=== PATIENT | female | born 1980 | race American Indian/Alaskan Native ===

== ENCOUNTER 2023-12-18 20:28 | Emergency (ER) | payer SELFPAY ==
[2023-12-18 20:47] LABS: BASOPHILS ABSOLUTE AUTO 0.1 K/mm3 (0.0-0.2); BASOPHILS PERCENT AUTO 1.4 % (0.0-1.0); EOSINOPHILS ABSOLUTE AUTO 0.2 K/mm3 (0.0-0.4); EOSINOPHILS PERCENT AUTO 3.7 % (0.0-6.0); HEMATOCRIT 36.5 % (37.0-47.0); IMMATURE GRAN ABSOLUTE AUTO 0.02 K/mm3 (0.00-0.05); IMMATURE GRAN PERCENT AUTO 0.4 % (0.0-0.4); LYMPHOCYTES ABSOLUTE AUTO 1.3 K/mm3 (1.0-4.8); LYMPHOCYTES PERCENT AUTO 22.9 % (24.0-44.0); MEAN CORPUSCULAR HEMOGLOBIN 23.1 pg (28.0-32.0); MEAN CORPUSCULAR HGB CONC 30.1 g/dl (32.0-36.0); MEAN CORPUSCULAR VOLUME 76.5 fl (83.0-99.0); MONOCYTES ABSOLUTE AUTO 0.6 K/mm3 (0.0-0.8); MONOCYTES PERCENT AUTO 9.8 % (0.0-8.0); NEUTROPHILS ABSOLUTE AUTO 3.5 K/mm3 (1.8-7.7); NEUTROPHILS PERCENT AUTO 61.8 % (41.0-71.0); PLATELET COUNT,PLT 398 K/mm3 (150-400); RED BLOOD CELL COUNT 4.77 M/mm3 (4.10-5.30); WHITE BLOOD CELL COUNT,WBC 5.63 K/mm3 (3.9-11.3)
[2023-12-18 20:49] LABS: APPEARANCE,URINE TURBID (Clear); BILIRUBIN,URINE 2+ (Negative); COLOR,URINE RED (Yellow); GLUCOSE,URINE NEGATIVE (Negative); KETONES,URINE 1+ (Negative); LEUKOCYTE ESTERASE,URINE 3+ (Negative); NITRITE,URINE POSITIVE (Negative); OCCULT BLOOD,URINE 3+ (Negative); PROTEIN,URINE 3+ (Negative)
[2023-12-18 21:02] LABS: BACTERIA,URINE MODERATE /hpf (FEW); MUCUS,URINE FEW /hpf (FEW); RBC,URINE TOO NUMEROUS TO CNT /hpf (0-5); WBC,URINE 50-75 /hpf (0-5)
[2023-12-18 21:32] LABS: ALBUMIN 3.9 g/dl (3.4-5.0); BILIRUBIN TOTAL 0.3 mg/dL (0.2-1.0); CREATININE 0.6 mg/dL (0.55-1.02); EST CRCL DRUG DOSING (CG) 111.03 mL/min; POTASSIUM,K 3.4 mEq/L (3.5-5.1); PROTEIN TOTAL,TP 7.7 g/dl (6.4-8.2)
[2023-12-18 21:45] LABS: ANION GAP 14.4 (5-15); BUN/CREATININE RATIO 13.3 (14-18)
[2023-12-18] MEDS ORDERED: Sulfamethoxazole/Trimethoprim 800-160 MG Tab PO ONE (21:56)
== END 2023-12-18 22:17 | disposition home or self-care (01) ==
LOC: MERGE 20:28 → JD.ED 20:28
DX: O03.9 Complete or unspecified spontaneous abortion without complication (principal); N30.00 Acute cystitis without hematuria; Z91.013 Allergy to seafood; Z88.8 Allergy status to other drugs, medicaments and biological substances
CPT/HCPCS: 36415; 76817; 76817-26; 80053; 81001; 84702; 85025; 87086; 99284